=== PATIENT | female | born 1955 | race Caucasian/White ===

== ENCOUNTER 2024-09-18 13:00 | Emergency (ER) | payer OTHER ==
[2024-09-18 13:18] VITALS: BP 125/70; PULSE 90; RESP 16; TEMP 98.2; BMI 32.4
[2024-09-18] MEDS ORDERED: KETOROLAC TROMETHAMINE 30 MG/1 ML VIAL ONE (14:15)
[2024-09-18] MEDS: KETOROLAC TROMETHAMINE 30 MG/1 ML VIAL IM ONE (14:23)
== END 2024-09-18 15:33 | disposition home or self-care (01) ==
LOC: JERFT 13:00
PROC: 3E0133Z Introduction of Anti-inflammatory into Subcutaneous Tissue, Percutaneous Approach (ICD-10-PCS; principal; 2024-09-18)
DX: M79.671 Pain in right foot (principal)
CPT/HCPCS: 36415; 73630-TC-RT-FY; 84550; 99284-25